=== PATIENT | female | born 1990 | race Caucasian/White ===

== ENCOUNTER 2021-07-26 08:06 | Emergency (ER) | payer OTHER ==
[2021-07-26 08:25] VITALS: RESP 18; TEMP 98.8
[2021-07-26 09:25] LABS: Appearance,Urine Clear (Clear); Bilirubin,Urine Negative (Negative); Blood,Urine Negative (Negative); Color,Urine Light Yellow; Glucose,Urine (UA) Negative (Negative); Ketones,Urine Negative (Negative); Leukocyte Esterase,Urine Negative (Negative); Nitrite,Urine Negative (Negative); Protein,Urine Negative (Negative); Specific Gravity,Urine 1.011 (1.001-1.035); Urobilinogen,Urine <2.0 mg/dL (<2.0)
--- NOTE | 2021-07-26 09:26 | ED ---
Female Urogenital HPI - General Chief complaint: Urogenital Stated complaint: 13wks preg, unable to urinate Time Seen by Provider: 07/26/21 08:29 Source: patient, RN notes reviewed Mode of arrival: wheelchair Limitations: no limitations - History of Present Illness Initial comments: Patient is a 31-year-old female that presents to the emergency department complaining of urinary discomfort and retention. She notes she is approximately 13 weeks with twins. She notes that for the past several weeks she's had difficulty urinating in the morning. She notes that she has had a plans preferably is usually able to go. She notes that this morning she sat there for 10 minutes and was unable to urinate so she came to the emergency room for symp louise medic control and relief. She denied any other symptoms or complaints at this time. She denied any abdominal cramping bleeding or, occasions with her . She denied chest pain shortness of breath headache nausea vomiting diarrhea constipation fever fatigue chills. - Related Data Previous Rx's Medication Instructions Recorded Cephalexin [Keflex] 500 mg PO Q6HR #40 cap 07/26/21 Allergies Allergy/AdvReac Type Severity Reaction Status Date / Time No Known Allergies Allergy Verified 07/26/21 08:25 Review of Systems ROS Statement: Those systems with pertinent positive or pertinent negative responses have been documented in the HPI. ROS Other: All systems not noted in ROS Statement are negative. Past Medical History Past Medical History: No Reported History Additional Past Medical History / Comment(s): anemia History of Any Multi-Drug Resistant Organisms: None Reported Past Surgical History: Tonsillectomy Past Psychological History: No Psychological Hx Reported Smoking Status: Never smoker Past Alcohol Use History: None Reported Past Drug Use History: None Reported General Exam Limitations: no limitations General appearance: alert, in no apparent distress Head exam: Present: atraumatic, normocephalic, normal inspection Eye exam: Present: normal appearance, PERRL, EOMI. Absent: scleral icterus, conjunctival injection, periorbital swelling Neck exam: Present: normal inspection Respiratory exam: Present: normal lung sounds bilaterally. Absent: respiratory distress, wheezes, rales, rhonchi, stridor Cardiovascular Exam: Present: regular rate, normal rhythm, normal heart sounds. Absent: systolic murmur, diastolic murmur, rubs, gallop, clicks GI/Abdominal exam: Present: soft, tenderness (Suprapubic), normal bowel sounds. Absent: distended, guarding, rebound, rigid Extremities exam: Present: normal inspection, full ROM, normal capillary refill. Absent: tenderness, pedal edema, joint swelling, calf tenderness Neurological exam: Present: alert, oriented X3 Psychiatric exam: Present: normal affect, normal mood Skin exam: Present: warm, dry, intact, normal color. Absent: rash Course Vital Signs 07/26/21 07/26/21 07/26/21 08:21 09:25 10:00 Temperature 98.8 F Pulse Rate 80 Respiratory 18 18 18 Rate Blood Pressure 125/80 O2 Sat by Pulse 97 Oximetry Medical Decision Making - Medical Decision Making 31-year-old female that is 13 weeks complaining of urinary retention difficulty urinating in the mornings. Bladder scan, straight catheterization, heart tones, labs ordered. Patient refusing blood draw at this time. 1000 mL of urine was drained from the bladder using a straight catheter. Patient wishes to go home today on her flight to [place]. She notes that he tried again with [employer] OF [employer] this is possible. Patient was informed that we can't give her a catheter with leg bag to alleviate symptoms to allow her to fly home. Case discussed with Dr. Hagen, patient can discharge home. - Lab Data Lab Results 07/26/21 Range/Units 09:21 Urine Color Light Yellow Urine Appearance Clear (Clear) Urine pH 6.0 (5.0-8.0) Ur Specific Drums 1.011 (1.001-1.035) Urine Protein Negative (Negative) Urine Glucose (UA) Negative (Negative) Urine Ketones Negative (Negative) Urine Blood Negative (Negative) Urine Nitrite Negative (Negative) Urine Bilirubin Negative (Negative) Urine Urobilinogen <2.0 (<2.0) mg/dL Ur Leukocyte Esterase Negative (Negative) Disposition Clinical Impression: Urinary retention, Disposition: HOME SELF-CARE Condition: Stable Instructions (If sedation given, give patient instructions): Acute Urinary Retention in Women (ED) Additional Instructions: Please return to the Emergency Department if symptoms worsen or any other concerns. Follow-up with primary care 1-2 days. Follow-up with [employer] as soon as possible. Keep catheter in, keep area around the tube clean. Take antibiotics as prescribed. Is patient prescribed a controlled substance at d/c from ED?: No Referrals: Nonstaff,Physician [Primary Care Provider] - 1-2 days Time of Disposition: 10:45
[2021-07-26 11:47] VITALS: BP 119/72; PULSE 69
== END 2021-07-26 11:41 | disposition home or self-care (01) ==
LOC: EC 08:06
DX: O26.891 Other specified pregnancy related conditions, first trimester (principal); Z3A.13 13 weeks gestation of pregnancy
CPT/HCPCS: 51701; 51798; 81003; 99283